=== PATIENT | female | born 1935 | race Caucasian/White ===

== ENCOUNTER 2016-09-08 11:16 | Emergency (ER) | payer MEDICARE ==
--- NOTE | 2016-09-08 11:45 | ER Document Report ---
ED Medical Screen (RME) - General Chief Complaint: Nausea Stated Complaint: NAUSEA,SHORTNESS OF BREATH Mode of Arrival: Wheelchair Information source: Patient, Relative TRAVEL OUTSIDE OF THE [place] IN LAST 30 DAYS: No - HPI Onset: Last week Onset/Duration: Gradual Context: KNOWN TO HAVE Ca OF BREAST, NO Rx DESIRED Quality of pain: Achy, Cramping Severity: Moderate Associated Symptoms: Abdominal pain, Chills, Nausea Exacerbated by: Denies Relieved by: Denies Similar symptoms previously: No Recently seen / treated by doctor: No - Related Data Smoking: Non-smoker Frequency of alcohol use: None Drug Abuse: None Allergies/Adverse Reactions: No Known Allergies Allergy (Verified 01/29/13 08:16) Past Medical History - General Information source: Patient - Social History Cigarette use (# per day): No Chew tobacco use (# tins/day): No Frequency of alcohol use: None Drug Abuse: None Lives with: Family Family history: Reviewed & Not Pertinent - Past Medical History Cardiac Medical History: Reports: Hx Hypertension Pulmonary Medical History: Reports: None Neurological Medical History: Reports: None Endocrine Medical History: Reports: None Malignancy Medical History: Reports: Hx Breast Cancer GI Medical History: Reports: None Musculoskeltal Medical History: Reports None Psychiatric Medical History: Reports: None Past Surgical History: Reports: Hx Hysterectomy, Hx Orthopedic Surgery - upper spine - Immunizations Hx Diphtheria, Pertussis, Tetanus Vaccination: Yes Review of Systems - Review of Systems Constitutional: Chills. denies: Fever EENT: No symptoms reported Cardiovascular: Chest pain, Dyspnea Respiratory: Cough, Hurts to breathe, Short of breath Gastrointestinal: Nausea, Constipation, Poor appetite Genitourinary: No symptoms reported Female Genitourinary: Post menopausal Physical Exam - Vital signs Interpretation: Normal
[2016-09-08 12:11] LABS: ABSOLUTE LYMPHOCYTES (AUTO) 0.4 10^3/uL (0.5-4.7); ABSOLUTE MONOCYTES (AUTO) 0.4 10^3/uL (0.1-1.4); ABSOLUTE NEUT (AUTO) 6.7 10^3/uL (1.7-8.2); BASOPHILS % (AUTO) 0.3 % (0-2); EOSINOPHILS % (AUTO) 0.3 % (0-6); HEMATOCRIT 38.1 % (36.0-47.0); HEMOGLOBIN 13.1 g/dL (12.0-15.5); HGB HCT DIFFERENCE 1.2; LYMPHOCYTES % (AUTO) 5.5 % (13-45); MEAN CORPUSCULAR HEMOGLOBIN 28.6 pg (27.0-33.4); MEAN CORPUSCULAR HGB CONC 34.4 g/dL (32.0-36.0); MEAN CORPUSCULAR VOLUME 83 fl (80-97); MONOCYTES % (AUTO) 5.4 % (3-13); RED BLOOD COUNT 4.58 10^6/uL (3.72-5.28); RED CELL DISTRIBUTION WIDTH 14.8 % (11.5-14.0); SEGMENTED NEUTROPHILS % (AUTO) 88.5 % (42-78); WHITE BLOOD COUNT 7.6 10^3/uL (4.0-10.5)
[2016-09-08 12:32] LABS: ANION GAP 13 (5-19); BLOOD UREA NITROGEN 12 mg/dL (7-20); CALCIUM 9.5 mg/dL (8.4-10.2); CARBON DIOXIDE 24 mmol/L (22-30); CHLORIDE 82 mmol/L (98-107); CREATININE RESULT 0.51 mg/dL (0.52-1.25); GLUCOSE 119 mg/dL (75-110); POTASSIUM 4.1 mmol/L (3.6-5.0)
[2016-09-08 12:33] LABS: ALANINE AMINOTRANSFERASE 40 U/L (9-52); ALBUMIN 4.5 g/dL (3.5-5.0); ALKALINE PHOSPHATASE 113 U/L (38-126); ASPARTATE AMINO TRANSFERASE 32 U/L (14-36); BILIRUBIN,DIRECT 0.2 mg/dL (0.0-0.4); CREATINE KINASE 104 U/L (30-135); LIPASE 142.8 U/L (23-300); TOTAL PROTEIN 7.2 g/dL (6.3-8.2)
[2016-09-08 12:38] LABS: SODIUM 118.9 mmol/L (137-145)
[2016-09-08 12:41] LABS: CREATINE KINASE MB 5.75 ng/mL (<4.55)
[2016-09-08 12:42] LABS: TROPONIN I < 0.012 ng/mL
--- NOTE | 2016-09-08 12:53 | EKG REPORT ---
SEVERITY:- ABNORMAL ECG - SINUS RHYTHM MULTIPLE ATRIAL PREMATURE COMPLEXES NONSPECIFIC T ABNORMALITIES, INFERIOR LEADS : Confirmed by: Elizabet Johnson MD 08-Sep-2016 12:52:16
--- NOTE | 2016-09-08 13:07 | ER Document Report ---
ED GI/ - General Mode of Arrival: Wheelchair Information source: Patient, Relative - daughters TRAVEL OUTSIDE OF THE [place] IN LAST 30 DAYS: No - HPI Patient complains to provider of: Other - Constipation Onset: Other - Last bowel movement 09/06/2016 Timing/Duration: Gradual, Persistent Associated symptoms: Constipation, Hurts to breath, Nausea. denies: Vomiting Similar symptoms previously: Yes <JAROCHO MONTEZ - Last Filed: 09/08/16 13:21> <KEITH COLON - Last Filed: 09/08/16 15:19> - General Chief Complaint: Constipation Stated Complaint: NAUSEA,SHORTNESS OF BREATH Notes: Patient is an 81-year-old female presenting to the emergency department with chief complaint of constipation, last bowel movement was 09/06/2016. Patient admits to nausea, but denies any vomiting. Patient also complains of difficulty breathing, possibly secondary to her constipation. Patient has been diagnosed with breast cancer, and she has chosen not to undergo treatment. (JAROCHO MONTEZ) - Related Data Allergies/Adverse Reactions: No Known Allergies Allergy (Verified 01/29/13 08:16) Past Medical History - General Information source: Patient - Social History Smoking Status: Unknown if Ever Smoked Cigarette use (# per day): No Chew tobacco use (# tins/day): No Frequency of alcohol use: None Drug Abuse: None Lives with: Family - Son Family History: Reviewed & Not Pertinent Patient has suicidal ideation: No Patient has homicidal ideation: No - Past Medical History Cardiac Medical History: Reports: Hx Hypertension Pulmonary Medical History: Reports: None Neurological Medical History: Reports: None Endocrine Medical History: Reports: None Renal/ Medical History: Denies: Hx Peritoneal Dialysis Malignancy Medical History: Reports: Hx Breast Cancer GI Medical History: Reports: None Musculoskeltal Medical History: Reports None Psychiatric Medical History: Reports: None Past Surgical History: Reports: Hx Hysterectomy, Hx Orthopedic Surgery - upper spine - Immunizations Hx Diphtheria, Pertussis, Tetanus Vaccination: Yes <JAROCHO MONTEZ - Last Filed: 09/08/16 13:21> Review of Systems - Review of Systems Constitutional: No symptoms reported EENT: No symptoms reported Cardiovascular: No symptoms reported Respiratory: No symptoms reported Gastrointestinal: See HPI, Nausea, Constipation, Last bowel movement - 04/01/ 2017. denies: Vomiting Genitourinary: No symptoms reported Female Genitourinary: No symptoms reported Musculoskeletal: No symptoms reported Skin: No symptoms reported Hematologic/Lymphatic: No symptoms reported Neurological/Psychological: No symptoms reported -: Yes All other systems reviewed and negative <JAROCHO MONTEZ - Last Filed: 09/08/16 13:21> Physical Exam - General General appearance: Alert - HEENT Head: Normocephalic, Atraumatic Eyes: Normal Pupils: PERRL - Respiratory Respiratory status: No respiratory distress Chest status: Nontender Breath sounds: Decreased air movement - Left - Cardiovascular Rhythm: Regular Heart sounds: Normal auscultation Murmur: No - Abdominal Inspection: Other - Resonant to percuss Bowel sounds: Normal Tenderness: Nontender - Back Back: Normal, Nontender - Extremities General upper extremity: Normal inspection, Nontender General lower extremity: Normal inspection, Nontender - Neurological Neuro grossly intact: Yes Cognition: Normal Orientation: AAOx4 Pryor Coma Scale Eye Opening: Spontaneous Pryor Coma Scale Verbal: Oriented Pryor Coma Scale Motor: Obeys Commands Pryor Coma Scale Total: 15 Speech: Normal - Psychological Associated symptoms: Normal affect, Normal mood - Skin Skin Temperature: Warm Skin Moisture: Dry Skin Color: Normal <JAROCHO MONTEZ - Last Filed: 09/08/16 13:21> Course - Laboratory Result Diagrams: 09/08/16 11:50 09/08/16 11:50 <JAROCHO MONTEZ - Last Filed: 09/08/16 13:21> - Laboratory Result Diagrams: 09/08/16 11:50 09/08/16 11:50 - Diagnostic Test Radiology reviewed: Image reviewed, Reports reviewed - Large left pleural effusion on chest x-ray, constipation on 2-way abdomen. - EKG Interpretation by Ne EKG shows normal: Sinus rhythm, [place], Intervals, QRS Complexes. abnormal: ST-T Waves - Nonspecific inferior T abnormalities Rate: Normal - 79 Rhythm: NSR, APC's - Consults Dr. Pino Time consulted: 15:10 Consulted provider: will come to ER <KEITH COLON - Last Filed: 09/08/16 15:19> - Vital Signs Vital signs: Temp Pulse Resp BP Pulse Ox 97.9 F 83 20 155/64 H 95 09/08/16 11:40 09/08/16 11:40 09/08/16 11:40 09/08/16 11:40 09/08/16 11:40 - Laboratory Laboratory results interpreted by me: 09/08/16 09/08/16 09/08/16 11:50 11:50 11:50 RDW 14.8 H Seg Neutrophils % 88.5 H Lymphocytes % 5.5 L Absolute Lymphocytes 0.4 L Sodium 118.9 L* Chloride 82 L Creatinine 0.51 L Glucose 119 H CK-MB (CK-2) 5.75 H Discharge <JAROCHO MONTEZ - Last Filed: 09/08/16 13:21> - Discharge Admitting Provider: Hospitalist Unit Admitted: Medical Floor <KEITH COLON - Last Filed: 09/08/16 15:19> - Discharge Clinical Impression: Pleural effusion, left, Hyponatremia, History of left breast cancer Constipation Qualifiers: Constipation type: unspecified constipation type Qualified Code(s): K59.00 - Constipation, unspecified Condition: Stable Disposition: ADMITTED INPATIENT Referrals: LEONID WORKMAN MD [Primary Care Provider] - Follow up as needed Scribe Attestation: 09/08/16 15:19 I personally performed the services described in the documentation, reviewed and edited the documentation which was dictated to the scribe in my presence, and it accurately records my words and actions. (KEITH COLON) Scribe Documentation - Scribe Written by Elsieiblul:: Jarocho Montez 09/08/2016 1307 acting as scribe for :: Mirela <JAROCHO MONTEZ - Last Filed: 09/08/16 13:21>
[2016-09-08] MEDS ORDERED: ONDANSETRON HCL INJ/PF 4 MG/2 ML SDV IV ONE (15:17)
[2016-09-08] MEDS ORDERED: NORMAL SALINE 1000 ML 1,000 ML IV PRN (15:17)
[2016-09-08 15:18] LABS: PROTHROMBIN TIME 12.6 SEC (11.4-15.4)
[2016-09-08 17:23] LABS: ALBUMIN 4.1 g/dL (3.5-5.0)
[2016-09-08 17:23] LABS: FLUID APPEARANCE SLIGHTLY HAZY; FLUID RBC DILUENT USED NONE USED; FLUID RBC DILUTION FACTOR 1; FLUID RBC SIDE 1 122; FLUID RBC SIDE 2 114; FLUID TYPE PLEURAL; TOTAL RBC SQUARES COUNTED FLD 150
[2016-09-08] MEDS ORDERED: MINERAL OIL 30 ML UDCUP PR ONE (18:30)
[2016-09-08] MEDS ORDERED: MAGNESIUM HYDROXIDE SUSP 30 ML UDCUP PR ONE (18:30)
[2016-09-08] MEDS ORDERED: SORBITOL 70% SOLUTION 30 ML UDC PR ONE (18:30)
[2016-09-08] MEDS ORDERED: GLYCERIN 99.5% (ANHYDROUS) 177 ML PR ONE (18:30)
[2016-09-08] MEDS ORDERED: NA PHOS,M-B/NA PHOS,DI-BA (ADULT) 133 ML ENEMA PR ONE (18:30)
[2016-09-08] MEDS ORDERED: BACLOFEN 10 MG TABLET PO ONE (18:30)
--- NOTE | 2016-09-08 20:12 | PDOC CONSULTATION ---
Consultation Consult Date: 09/08/16 Attending physician:: KEITH COLON Consult reason:: Hyponatremia pleural effusion History of Present Illness Admission Date/PCP: 09/08/16 15:41 ELONID WORKMAN MD History of Present Illness: BRIANNE RODRIGUEZ is a 81 year old female with a history of hypertension and breast cancer who has decided to have her breast cancer remain untreated. The last several weeks she's been increasingly short of breath with increased dyspnea on exertion. Patient's family denies any peripheral edema. She's had a weight loss of approximately 5 pounds in last 2 weeks. She's had several episodes of hives and received prednisone and hydroxyzine for these. Patient's family at this time while grateful for the thoracocentesis and constipation relief, would like to take patient home on hospice. Past Medical History Cardiac Medical History: Reports: Hypertension Pulmonary Medical History: Reports: None Neurological Medical History: Reports: None Endocrine Medical History: Reports: None Malignancy Medical History: Reports: Breast Cancer GI Medical History: Reports: None Musculoskeltal Medical History: Reports: None Psychiatric Medical History: Reports: None Past Surgical History Past Surgical History: Reports: Hysterectomy, Orthopedic Surgery - upper spine Social History Lives with: Family - Son Smoking Status: Never Smoker Frequency of Alcohol Use: None Hx Recreational Drug Use: No Hx Prescription Drug Abuse: No - Advance Directive Resuscitation Status: Do Not Resuscitate Surrogate healthcare decision maker:: Daughters Family History Family History: Reviewed & Not Pertinent Parental Family History Reviewed: No Children Family History Reviewed: No Sibling(s) Family History Reviewed.: No Medication/Allergy Home Medications: Amlodipine Besylate [Norvasc 10 mg Tablet] 10 mg PO DAILY 09/08/16 Baclofen [Baclofen 10 mg Tablet] 5 mg PO Q8 09/08/16 Furosemide [Lasix] 20 mg PO DAILY 09/08/16 Ramipril [Altace 10 mg Capsule] 10 mg PO DAILY 09/08/16 Tramadol HCl [Ultram 50 mg Tablet] 50 mg PO BIDP PRN 09/08/16 Allergies/Adverse Reactions: No Known Allergies Allergy (Verified 01/29/13 08:16) Review of Systems Constitutional: PRESENT: weight loss. ABSENT: chills, fever(s), headache(s), weight gain Eyes: ABSENT: visual disturbances Ears: ABSENT: hearing changes Cardiovascular: PRESENT: dyspnea on exertion. ABSENT: chest pain, edema, orthropnea, palpitations Respiratory: PRESENT: cough. ABSENT: hemoptysis Gastrointestinal: PRESENT: constipation. ABSENT: abdominal pain, diarrhea, hematemesis, hematochezia, nausea, vomiting Genitourinary: ABSENT: dysuria, hematuria Musculoskeletal: ABSENT: joint swelling Integumentary: PRESENT: rash. ABSENT: wounds Neurological: ABSENT: abnormal gait, abnormal speech, confusion, dizziness, focal weakness, syncope Psychiatric: ABSENT: anxiety, depression, homidical ideation, suicidal ideation Endocrine: ABSENT: cold intolerance, heat intolerance, polydipsia, polyuria Hematologic/Lymphatic: ABSENT: easy bleeding, easy bruising Physical Exam Vital Signs: Temp Pulse Resp BP Pulse Ox 98.3 F 76 22 H 142/59 H 89 L 09/08/16 19:14 09/08/16 19:14 09/08/16 19:14 09/08/16 19:14 09/08/16 19:14 Exam: General: Awake alert and oriented x3, mild respiratory distress HEENT: AT/NC, PERRL, EOMI, oropharynx is moist, pink, no scleral icterus, no conjunctival injection Neck: No JVD, trachea midline, profound kyphosis Chest: Diminished left lower lobe, Rales Chest wall: Patient with left-sided fungating breast cancer CV: Regular rate and rhythm, normal S1 and S2, no murmur, rub, or gallop Abdomen: Soft, nontender to palpation, distended, hypoactive bowel sounds; no rebound, rigidity, or guarding Extremities: No cyanosis, clubbing; 2+edema Neuro: Cranial nerves II through XII are grossly intact without focal deficits Psych: Normal mood and affect Results Laboratory Results: 09/08/16 09/08/16 09/08/16 16:08 16:55 16:55 Serum Osmolality 246 L Albumin 4.1 TSH Fluid Type PLEURAL Fluid Source Fluid Color YELLOW Fluid Appearance SLIGHTLY HAZY Fluid Viscosity LIQUID Fluid WBC 448 Fluid RBC 196 09/08/16 16:55 Serum Osmolality Albumin TSH 2.56 Fluid Type Fluid Source Fluid Color Fluid Appearance Fluid Viscosity Fluid WBC Fluid RBC Impressions: Thoracentesis Ultrasound 09/08/16 00:00 IMPRESSION: SUCCESSFUL THORACENTESIS USING ULTRASOUND GUIDANCE. Chest X-Ray 09/08/16 11:46 IMPRESSION: MARKED CARDIOMEGALY WITH VASCULAR CONGESTION. LARGE LEFT PLEURAL EFFUSION. SMALL RIGHT PLEURAL EFFUSION. Abdomen X-Ray 09/08/16 13:06 IMPRESSION: Nonspecific increase bowel gas, likely nonobstructive. No free air. Has Left pleural effusion. Assessment & Plan - Diagnosis (1) stage IV left breast cancer Is this a current diagnosis for this admission?: YesPlan: Patient has not received any treatment and does not want any treatment for this. At this time, I visited with hospice for this patient. She'll be discharged home tonight and hospice will see her in the morning. (2) Constipation Qualifiers: Constipation type: unspecified constipation type Qualified Code(s): K59.00 - Constipation, unspecified Is this a current diagnosis for this admission?: YesPlan: We'll give patient an enema here in the emergency department. (3) Hyponatremia Is this a current diagnosis for this admission?: YesPlan: Likely secondary to SIADH. (4) Pleural effusion, left Is this a current diagnosis for this admission?: YesPlan: Fluid studies have been sent - Time Time Spent: 50 to 70 Minutes Medications reviewed and adjusted accordingly: Yes Anticipated discharge: Home Within: Other - Now - Inpatient Certification Based on my medical assessment, after consideration of the patient's comorbidities, presenting symptoms, or acuity I expect that the services needed warrant INPATIENT care.: No I certify that my determination is in accordance with my understanding of Medicare's requirements for reasonable and necessary INPATIENT services [42 CFR 412.3e].: No
[2016-09-08 23:28] VITALS: BP 133/61
== END 2016-09-08 23:28 | disposition other institution (70) ==
LOC: ER 11:16 → EH 15:41 → UNDOADMIN 15:41 → ER 23:28 → UNDODISIN 23:33
PROC: 0W9B3ZZ Drainage of Left Pleural Cavity, Percutaneous Approach (ICD-10-PCS; principal; 2016-09-08)
PROC: BB4BZZZ Ultrasonography of Pleura (ICD-10-PCS; 2016-09-08)
DX: C50.912 Malignant neoplasm of unspecified site of left female breast (principal); K59.00 Constipation, unspecified; J90 Pleural effusion, not elsewhere classified; E87.1 Hypo-osmolality and hyponatremia; R11.0 Nausea; R06.02 Shortness of breath; R10.9 Unspecified abdominal pain; R68.83 Chills (without fever); I10 Essential (primary) hypertension; Z85.3 Personal history of malignant neoplasm of breast; Z90.710 Acquired absence of both cervix and uterus; R63.4 Abnormal weight loss
CPT/HCPCS: 93005; 99285; 36415; 87205; 87070; 82553; 82040; 82550; 83615 ×2; 83690; 83930; 84443; 85025; 85610; 89050; 87075; 80053; 84484; 82042; 82945; 88162; 88305 ×2; 74020; 71020; 71010; 32555; 93010; A9270 ×2; J3490 ×4; J2405